=== PATIENT | female | born 1945 | race African-American/Black ===

== ENCOUNTER 2019-12-31 05:39 | Inpatient (IN) | payer MEDICARE, MEDICAID ==
[~2019-12-31] VITALS: Ht 172.7 cm; Wt 53.1 kg
[~2019-12-31 05:39] MED LIST: ALBU18HF2 INH; AMI2 PO; ASPI-1497 PO; ATOR10TA69 PO; BUSP5TAB3 PO; CARV3.1242 PO; CYCL10TA7 PO; DOCU-150 PO; DOCU-272 PO; FURO20TA4 PO; HYDR-4001 PO; IPRA4AER INH; LIDO35.44 TOP; LISI10TA5 PO; MELO-106 PO; NITR0.4T SL; PANT40TA4 PO; SPIR25TA6 PO; TIOT18CA3 IH; TIOT18CA3 INH; TRAM50TA3 PO; ZOLP5TAB8 PO
[2019-12-31 06:59] LABS: BASOPHILS % 0.5 % (0.0-2.0); EOSINOPHILS % 0.5 % (0.0-5.0); HEMATOCRIT. 39.3 % (36.0-48.0); HEMOGLOBIN. 13.7 g/dL (12.0-16.0); MEAN CORPUSCULAR HEMOGLOBIN 35.9 pg (28.0-32.0); MEAN CORPUSCULAR VOLUME 103.2 fL (81.0-99.0); MEAN PLATELET VOLUME 8.9 fl (7.4-10.4); MONOCYTES % 12.2 % (2.0-8.0); NEUTROPHILS % 73.8 % (40.0-76.0); PLATELET 155 x1000/uL (130-400); RED BLOOD CELL COUNT 3.81 mill/uL (4.2-5.4); RED CELL DISTRIBUTION WIDTH 12.6 % (11.6-14.6)
[2019-12-31 07:04] LABS: CLARITY URINE CLEAR (CLEAR); COLOR URINE YELLOW (YELLOW); KETONES URINE NEGATIVE (NEGATIVE); LEUKOCYTE ESTERASE URINE NEGATIVE (NEGATIVE); NITRITE URINE NEGATIVE (NEGATIVE); OCCULT BLOOD URINE NEGATIVE (NEGATIVE); PH URINE 6.5 (4.5-8.0); PROTEIN URINE NEGATIVE (NEGATIVE); SPECIFIC GRAVITY URINE 1.008 (1.005-1.030); UROBILINOGEN URINE 0.2 E.U./dL (0.2-1.0)
[2019-12-31 07:06] LABS: CHLORIDE 104 mEq/L (98-107)
[2019-12-31 07:10] LABS: ETHANOL BLOOD < 10 mg/dL
[2019-12-31 07:21] LABS: *AMPHETAMINES SCREEN URINE NEGATIVE (NEGATIVE); *BARBITURATES SCREEN URINE NEGATIVE (NEGATIVE); *BENZODIAZEPINES SCREEN URINE NEGATIVE (NEGATIVE)
[2019-12-31 07:22] LABS: *COCAINE SCREEN URINE PRESUMTIVE POSITIVE (NEGATIVE); CANNABINOID URINE SCREEN NEGATIVE (NEGATIVE); METHADONE URINE SCREEN NEGATIVE (NEGATIVE); OPIATES URINE SCREEN NEGATIVE (NEGATIVE); PHENCYCLIDINE URINE SCREEN NEGATIVE (NEGATIVE)
[2019-12-31] MEDS ORDERED: KETOROLAC 30MG/ML VIAL IV ONE (11:30)
[2019-12-31 20:00] VITALS: BP 111/68
[2019-12-31 21:48] VITALS: BP 111/68
[2019-12-31] MEDS ORDERED: ONDANSETRON HCL 4MG/2ML INJ IV PRN (22:30)
[2019-12-31] MEDS: HYDROCODONE/ACETAMINOPHEN 5/325MG TABLET PO PRN (23:00)
[2019-12-31] MEDS: SODIUM CHLORIDE 0.9% 1,000 ML IV SCH (23:36)
[2020-01-01] VITALS: BP 111/63
[2020-01-01 04:00] VITALS: BP 122/67
[2020-01-01 08:00] VITALS: BP 124/55
[2020-01-01] MEDS: ENOXAPARIN 40MG/0.4ML SYR SUBCUT SCH (08:01)
[2020-01-01 08:14] LABS: HEMATOCRIT. 36.9 % (36.0-48.0); HEMOGLOBIN. 12.6 g/dL (12.0-16.0); MEAN CORPUSCULAR HEMOGLOBIN 35.9 pg (28.0-32.0); MEAN CORPUSCULAR VOLUME 104.9 fL (81.0-99.0); MEAN PLATELET VOLUME 9.7 fl (7.4-10.4); PLATELET 139 x1000/uL (130-400); RED BLOOD CELL COUNT 3.52 mill/uL (4.2-5.4); RED CELL DISTRIBUTION WIDTH 12.4 % (11.6-14.6)
[2020-01-01] MEDS: SODIUM CHLORIDE 0.9% 1,000 ML IV SCH (10:58)
[2020-01-01] MEDS ORDERED: PNEUMOCOCCAL 23-VAL P-SAC VAC 0.5 ML IM ONE (11:00)
[2020-01-01 12:00] VITALS: BP 120/54
[2020-01-01] MEDS: ASPIRIN 81MG TABLET PO SCH (15:38)
[2020-01-01 15:57] VITALS: BP 103/61
[2020-01-01] MEDS: HYDROCODONE/ACETAMINOPHEN 5/325MG TABLET PO PRN ×2 (18:26→22:35)
[2020-01-01 20:00] VITALS: BP 109/71
[2020-01-01 23:26] LABS: PLATELET ESTIMATE NORMAL
[2020-01-01 23:56] LABS: T4 FREE 0.93 ng/dL (0.76-1.46)
[2020-01-02 00:06] LABS: FOLIC ACID (FOLATE) SERUM 16.4 ng/mL (>5.38)
[2020-01-02] MEDS: SODIUM CHLORIDE 0.9% 1,000 ML IV SCH (01:43)
[2020-01-02 04:00] VITALS: BP 116/69
[2020-01-02 06:30] LABS: HEMATOCRIT. 34.8 % (36.0-48.0); HEMOGLOBIN. 11.9 g/dL (12.0-16.0); MEAN CORPUSCULAR VOLUME 105.6 fL (81.0-99.0); MEAN PLATELET VOLUME 9.4 fl (7.4-10.4); PLATELET 121 x1000/uL (130-400); RED BLOOD CELL COUNT 3.29 mill/uL (4.2-5.4); RED CELL DISTRIBUTION WIDTH 12.7 % (11.6-14.6)
[2020-01-02 08:00] VITALS: BP 122/70
[2020-01-02] MEDS: ASPIRIN 81MG TABLET PO SCH (08:59)
[2020-01-02] MEDS ORDERED: FUROSEMIDE 40MG TABLET PO SCH (09:00)
[2020-01-02] MEDS: ENOXAPARIN 40MG/0.4ML SYR SUBCUT SCH (09:00)
[2020-01-02] MEDS: HYDROCODONE/ACETAMINOPHEN 5/325MG TABLET PO PRN (09:00)
[2020-01-02] MEDS ORDERED: LOSARTAN POTASSIUM 25 MG TABLET PO SCH (09:00)
[2020-01-02 12:00] VITALS: BP 120/72
[2020-01-02] MEDS ORDERED: AMIODARONE HCL 200 MG TABLET PO SCH (14:00)
[2020-01-02 14:10] LABS: PLATELET ESTIMATE DECREASED
[2020-01-02 14:56] VITALS: BP 120/72
[2020-01-02] MEDS ORDERED: CARVEDILOL 3.125 MG TABLET PO SCH (21:00)
== END 2020-01-02 17:22 | disposition home or self-care (01) | DRG 917 ==
LOC: ER 05:39 → 5WST 11:10 → ENRESERV 18:55
PROVIDERS: ADMIT Internal Medicine; ATTEND Internal Medicine
DX: T40.5X1A Poisoning by cocaine, accidental (unintentional), initial encounter (principal); G92 Toxic encephalopathy; I47.1 Supraventricular tachycardia; I50.22 Chronic systolic (congestive) heart failure; I42.9 Cardiomyopathy, unspecified; I11.0 Hypertensive heart disease with heart failure; J44.9 Chronic obstructive pulmonary disease, unspecified; F14.10 Cocaine abuse, uncomplicated; E78.00 Pure hypercholesterolemia, unspecified; Z88.0 Allergy status to penicillin; Z79.899 Other long term (current) drug therapy; Z86.73 Personal history of transient ischemic attack (TIA), and cerebral infarction without residual deficits; F19.10 Other psychoactive substance abuse, uncomplicated
CPT/HCPCS: 36415; 70551; 71045; 80048; 80053; 80061; 80305; 80320; 81003; 82140; 82607; 82746; 83036; 84439; 84443; 84481; 85025; 90732; 93005; 97116; 97162; 99285; J1650; J1885; J2405; J7030; G0480

== ENCOUNTER 2020-12-07 08:23 | Inpatient (IN) | payer MEDICARE, MEDICAID ==
[~2020-12-07] VITALS: Ht 172.7 cm; Wt 72.8 kg
[~2020-12-07 08:23] MED LIST changes: +LISI10TA26 PO; -LISI10TA5 PO; -PANT40TA4 PO; +PANT40TA51 PO
[2020-12-07] MEDS ORDERED: MORPHINE SULFATE 4 MG/ML CPJ (NOT FOR IM USE) IV STA (09:09)
[2020-12-07 09:26] LABS: HEMATOCRIT. 37.6 % (36.0-48.0); HEMOGLOBIN. 12.7 g/dL (12.0-16.0); MEAN CORPUSCULAR HEMOGLOBIN 34.5 pg (28.0-32.0); MEAN CORPUSCULAR VOLUME 102.2 fL (81.0-99.0); MEAN PLATELET VOLUME 8.4 fl (7.4-10.4); PLATELET 172 x1000/uL (130-400); RED BLOOD CELL COUNT 3.68 mill/uL (4.2-5.4); RED CELL DISTRIBUTION WIDTH 14.1 % (11.6-14.6)
[2020-12-07 09:33] LABS: CHLORIDE 111 mEq/L (98-107)
[2020-12-07 09:34] LABS: INR 1.2; PROTHROMBIN TIME 12.9 sec (9.6-11.0)
[2020-12-07] MEDS ORDERED: KETOROLAC 30MG/ML VIAL IV ONE (09:45)
[2020-12-07 09:55] LABS: CLARITY URINE TURBID (CLEAR); COLOR URINE DARK YELLOW (YELLOW); KETONES URINE TRACE (NEGATIVE); LEUKOCYTE ESTERASE URINE 3+ (NEGATIVE); NITRITE URINE NEGATIVE (NEGATIVE); OCCULT BLOOD URINE 3+ (NEGATIVE); PH URINE 5.5 (4.5-8.0); PROTEIN URINE 2+ (NEGATIVE); SPECIFIC GRAVITY URINE 1.018 (1.005-1.030)
[2020-12-07 10:27] LABS: PLATELET ESTIMATE NORMAL
[2020-12-07] MEDS ORDERED: LEVOFLOXACIN 750MG PREMIX 150 ML IV ONE (11:00)
[2020-12-07] MEDS: AZTREONAM 2 GM in DEXT 5% WATER 100 ML IV SCH (15:18)
[2020-12-07] MEDS ORDERED: DOCUSATE SODIUM 100MG CAPSULE PO PRN (22:45)
[2020-12-07] MEDS ORDERED: ACETAMINOPHEN 325MG TABLET PO PRN (22:45)
[2020-12-07] MEDS ORDERED: ONDANSETRON HCL 4MG/2ML INJ IV PRN (22:45)
[2020-12-07] MEDS: CARVEDILOL 3.125 MG TABLET PO SCH (23:00)
[2020-12-07] MEDS ORDERED: TRAMADOL 50MG TABLET PO PRN (23:00)
[2020-12-07] MEDS ORDERED: HYDROCODONE/ACETAMINOPHEN 5/325MG TABLET PO PRN (23:00)
[2020-12-07] MEDS ORDERED: ENOXAPARIN 40MG/0.4ML SYR SUBCUT SCH (23:00)
[2020-12-07 23:19] VITALS: BP 102/69
[2020-12-07] MEDS: ATORVASTATIN CALCIUM 10MG TABLET PO SCH (23:47)
[2020-12-08] MEDS: SODIUM CHLORIDE 0.9% 1,000 ML IV SCH ×3 (02:20→17:07)
[2020-12-08] MEDS: AZTREONAM 2 GM in DEXT 5% WATER 100 ML IV SCH ×2 (02:21→14:14)
[2020-12-08 04:00] VITALS: BP 125/73
[2020-12-08] MEDS: PANTOPRAZOLE 40MG DR TABLET PO SCH (06:37)
[2020-12-08 06:57] LABS: BASOPHILS % 0.3 % (0.0-2.0); EOSINOPHILS % 0.1 % (0.0-5.0); HEMATOCRIT. 40.8 % (36.0-48.0); HEMOGLOBIN. 13.7 g/dL (12.0-16.0); LYMPHOCYTES % 8.9 % (20.0-50.0); MEAN CORPUSCULAR HEMOGLOBIN 35.2 pg (28.0-32.0); MEAN CORPUSCULAR VOLUME 104.6 fL (81.0-99.0); MEAN PLATELET VOLUME 8.4 fl (7.4-10.4); MONOCYTES % 11.7 % (2.0-8.0); PLATELET 174 x1000/uL (130-400); RED CELL DISTRIBUTION WIDTH 14.9 % (11.6-14.6)
[2020-12-08 08:00] VITALS: BP 106/73
[2020-12-08] MEDS: AMIODARONE HCL 200 MG TABLET PO SCH (09:00)
[2020-12-08] MEDS ORDERED: CYCLOBENZAPRINE 10MG TABLET PO PRN (09:00)
[2020-12-08] MEDS: CARVEDILOL 3.125 MG TABLET PO SCH ×2 (09:00→20:54)
[2020-12-08] MEDS: FUROSEMIDE 20MG TABLET PO SCH (09:00)
[2020-12-08] MEDS: LISINOPRIL 10MG TABLET PO SCH (09:00)
[2020-12-08] MEDS: SPIRONOLACTONE 25MG TABLET PO SCH (09:00)
[2020-12-08] MEDS ORDERED: ALBUTEROL 6.7GM HFA INHALER INH PRN (09:00)
[2020-12-08] MEDS: BUSPIRONE HCL 5MG TABLET PO SCH ×2 (09:48→17:06)
[2020-12-08] MEDS: ASPIRIN 81MG EC TABLET PO SCH (09:48)
[2020-12-08 12:00] VITALS: BP 111/67
[2020-12-08] MEDS ORDERED: SULF1TAB48 MT (14:01)
[2020-12-08 16:00] VITALS: BP 122/79
[2020-12-08 17:11] VITALS: BP 122/79
[2020-12-08 20:00] VITALS: BP 111/76
[2020-12-08] MEDS: ATORVASTATIN CALCIUM 10MG TABLET PO SCH (20:54)
[2020-12-08] MEDS ORDERED: ZOLPIDEM TARTRATE 5MG TABLET PO PRN (21:00)
[2020-12-08] MEDS ORDERED: ENOXAPARIN 30MG/0.3ML SYR SUBCUT SCH (21:00)
[2020-12-08] MEDS ORDERED: LINEZOLID 600 MG PREMIX 300 ML IV SCH (22:00)
[2020-12-09] VITALS: BP 114/63
[2020-12-09 04:00] VITALS: BP 112/61
[2020-12-09] MEDS: SODIUM CHLORIDE 0.9% 1,000 ML IV SCH (04:49)
[2020-12-09] MEDS: PANTOPRAZOLE 40MG DR TABLET PO SCH ×2 (06:45→09:34)
[2020-12-09 08:00] VITALS: BP 110/70
[2020-12-09] MEDS ORDERED: LINEZOLID 600MG TABLET PO SCH (09:00)
[2020-12-09] MEDS: LISINOPRIL 10MG TABLET PO SCH (09:33)
[2020-12-09] MEDS: FUROSEMIDE 20MG TABLET PO SCH (09:34)
[2020-12-09] MEDS: AMIODARONE HCL 200 MG TABLET PO SCH (09:34)
[2020-12-09] MEDS: BUSPIRONE HCL 5MG TABLET PO SCH (09:34)
[2020-12-09] MEDS: ASPIRIN 81MG EC TABLET PO SCH (09:35)
[2020-12-09] MEDS: SPIRONOLACTONE 25MG TABLET PO SCH (09:35)
[2020-12-09] MEDS: CARVEDILOL 3.125 MG TABLET PO SCH (09:46)
== END 2020-12-09 12:30 | disposition home or self-care (01) | DRG 689 ==
LOC: ER 08:50 → MICUSO 13:10 → EDBEDREQTM 13:14 → EDBEDREQ 13:14 → EDBEDREQSVC 13:14 → 6EST 19:13
PROVIDERS: ADMIT Internal Medicine; ATTEND Internal Medicine
DX: N10 Acute pyelonephritis (principal); I50.21 Acute systolic (congestive) heart failure; I42.9 Cardiomyopathy, unspecified; R18.8 Other ascites; E78.5 Hyperlipidemia, unspecified; I48.0 Paroxysmal atrial fibrillation; I11.0 Hypertensive heart disease with heart failure; J45.909 Unspecified asthma, uncomplicated; D64.9 Anemia, unspecified; I25.10 Atherosclerotic heart disease of native coronary artery without angina pectoris; J44.9 Chronic obstructive pulmonary disease, unspecified; Z95.1 Presence of aortocoronary bypass graft; Z88.0 Allergy status to penicillin; Z79.899 Other long term (current) drug therapy; Z79.82 Long term (current) use of aspirin
CPT/HCPCS: 36415; 74176; 80048; 80053; 81003; 85025; 87077; 87186; 93005; 93970; 99285; J1650; J1885; J1956; J2270; J3490; J7030; J7042; J7060

== ENCOUNTER 2020-12-19 11:18 | Emergency (ER) | payer MEDICARE, MEDICAID ==
[~2020-12-19] VITALS: Ht 177.8 cm; Wt 88.0 kg
[~2020-12-19 11:18] MED LIST changes: +DOCU-268 PO; -DOCU-272 PO; +SULF1TAB48 MT
[2020-12-19] MEDS ORDERED: HYDROCODONE/ACETAMINOPHEN 5/325MG TABLET PO ONE (12:15)
[2020-12-19] MEDS ORDERED: ONDANSETRON HCL 4MG/2ML INJ IV ONE (12:30)
[2020-12-19] MEDS ORDERED: MORPHINE SULFATE 4 MG/ML CPJ (NOT FOR IM USE) IV ONE (12:30)
[2020-12-19 12:31] LABS: BASOPHILS % 0.7 % (0.0-2.0); EOSINOPHILS % 0.2 % (0.0-5.0); HEMOGLOBIN. 12.8 g/dL (12.0-16.0); LYMPHOCYTES % 20.8 % (20.0-50.0); MEAN CORPUSCULAR HEMOGLOBIN 34.3 pg (28.0-32.0); MEAN PLATELET VOLUME 8.4 fl (7.4-10.4); MONOCYTES % 9.8 % (2.0-8.0); NEUTROPHILS % 68.5 % (40.0-76.0); PLATELET 285 x1000/uL (130-400); RED BLOOD CELL COUNT 3.72 mill/uL (4.2-5.4); RED CELL DISTRIBUTION WIDTH 15.2 % (11.6-14.6)
[2020-12-19 12:37] LABS: CHLORIDE 110 mEq/L (98-107)
[2020-12-19] MEDS ORDERED: SODIUM CHLORIDE 0.9% 500 ML IV ONE (13:45)
[2020-12-19 14:39] LABS: INR 1.3; PROTHROMBIN TIME 13.3 sec (9.6-11.0)
[2020-12-19 16:55] LABS: CLARITY URINE CLEAR (CLEAR); COLOR URINE DARK YELLOW (YELLOW); KETONES URINE TRACE (NEGATIVE); LEUKOCYTE ESTERASE URINE TRACE (NEGATIVE); NITRITE URINE NEGATIVE (NEGATIVE); OCCULT BLOOD URINE NEGATIVE (NEGATIVE); PH URINE 5.5 (4.5-8.0); PROTEIN URINE 1+ (NEGATIVE); SPECIFIC GRAVITY URINE 1.023 (1.005-1.030)
[2020-12-19 19:00] VITALS: BP 136/80
== END 2020-12-19 19:30 | disposition home or self-care (01) ==
LOC: ER 11:34
DX: R10.32 Left lower quadrant pain (principal); J44.9 Chronic obstructive pulmonary disease, unspecified; I48.0 Paroxysmal atrial fibrillation; J45.909 Unspecified asthma, uncomplicated; I11.0 Hypertensive heart disease with heart failure; I50.9 Heart failure, unspecified; E78.00 Pure hypercholesterolemia, unspecified; I42.9 Cardiomyopathy, unspecified; Z95.1 Presence of aortocoronary bypass graft; Z79.82 Long term (current) use of aspirin; Z98.890 Other specified postprocedural states; Z79.01 Long term (current) use of anticoagulants; Z88.0 Allergy status to penicillin
CPT/HCPCS: 36415; 74176; 80053; 81003; 83690; 85025; 85610; 93005; 96361; 96374; 96375; 99285; J2270; J2405; J7040

== ENCOUNTER 2021-06-23 13:59 | Emergency (ER) | payer MEDICARE, MEDICAID ==
[~2021-06-23] VITALS: Ht 170.2 cm; Wt 55.0 kg
[~2021-06-23 13:59] MED LIST changes: +PRED10TA23 PO; -SULF1TAB48 MT
[2021-06-23] MEDS ORDERED: HYDROCODONE/APAP 7.5/325MG 1 TAB TABLET PO ONE (15:30)
[2021-06-23] MEDS ORDERED: KETOROLAC 60MG/2ML VIAL IM ONE (15:30)
[2021-06-23] MEDS ORDERED: METHOCARBAMOL 750MG TABLET PO SCH (15:30)
[2021-06-23] MEDS ORDERED: LIDOCAINE 5% PATCH TOP SCH (15:30)
[2021-06-23] MEDS ORDERED: LIDO1ADH23 TP (17:23)
[2021-06-23] MEDS ORDERED: METH-653 MT (17:23)
[2021-06-23] MEDS ORDERED: IBUP-2028 MT (17:23)
[2021-06-23 18:17] LABS: BASOPHILS % 0.9 % (0.0-2.0); EOSINOPHILS % 1.1 % (0.0-5.0); HEMOGLOBIN. 11.5 g/dL (12.0-16.0); LYMPHOCYTES % 15.4 % (20.0-50.0); MEAN CORPUSCULAR HEMOGLOBIN 32.9 pg (28.0-32.0); MEAN CORPUSCULAR VOLUME 99.7 fL (81.0-99.0); MEAN PLATELET VOLUME 7.9 fl (7.4-10.4); MONOCYTES % 13.6 % (2.0-8.0); PLATELET 225 x1000/uL (130-400); RED BLOOD CELL COUNT 3.51 mill/uL (4.2-5.4); RED CELL DISTRIBUTION WIDTH 17.9 % (11.6-14.6)
[2021-06-23 18:22] LABS: CHLORIDE 108 mEq/L (98-107)
[2021-06-23 21:57] LABS: CLARITY URINE CLEAR (CLEAR); COLOR URINE DARK YELLOW (YELLOW); KETONES URINE TRACE (NEGATIVE); LEUKOCYTE ESTERASE URINE TRACE (NEGATIVE); NITRITE URINE NEGATIVE (NEGATIVE); OCCULT BLOOD URINE NEGATIVE (NEGATIVE); PH URINE 5.5 (4.5-8.0); PROTEIN URINE 1+ (NEGATIVE); SPECIFIC GRAVITY URINE 1.024 (1.005-1.030)
[2021-06-23] MEDS ORDERED: CEFP200T13 MT (22:44)
[2021-06-23] MEDS ORDERED: CEFTRIAXONE SODIUM 1 G/VIAL IM ONE (22:45)
[2021-06-23 23:51] VITALS: BP 128/68
== END 2021-06-23 23:52 | disposition home or self-care (01) ==
LOC: ER 14:10
DX: M54.9 Dorsalgia, unspecified (principal); G89.29 Other chronic pain; M48.00 Spinal stenosis, site unspecified; K76.0 Fatty (change of) liver, not elsewhere classified; R18.8 Other ascites; N39.0 Urinary tract infection, site not specified; I11.0 Hypertensive heart disease with heart failure; I50.9 Heart failure, unspecified; Z88.0 Allergy status to penicillin; Z79.82 Long term (current) use of aspirin; Z20.822 Contact with and (suspected) exposure to COVID-19; Z98.890 Other specified postprocedural states; J44.9 Chronic obstructive pulmonary disease, unspecified
CPT/HCPCS: 36415; 72050; 72070; 76700; 80053; 81003; 83690; 85025; 87426; 96372; 99285; J0696; J1885

== ENCOUNTER 2021-07-15 18:31 | Inpatient (IN) | payer MEDICARE, MEDICAID ==
[~2021-07-15] VITALS: Ht 165.1 cm; Wt 59.9 kg
[~2021-07-15 18:31] MED LIST changes: +CEFP200T13 MT; +IBUP-2028 MT; +LIDO1ADH23 TP; +METH-653 MT
[2021-07-15] MEDS ORDERED: MORPHINE SULFATE 4 MG/ML CPJ (NOT FOR IM USE) IV STA (19:17)
[2021-07-15 19:56] LABS: BASOPHILS % 1.6 % (0.0-2.0); EOSINOPHILS % 1.4 % (0.0-5.0); HEMATOCRIT. 39.1 % (36.0-48.0); HEMOGLOBIN. 12.2 g/dL (12.0-16.0); LYMPHOCYTES % 21.8 % (20.0-50.0); MEAN CORPUSCULAR HEMOGLOBIN 31.7 pg (28.0-32.0); MEAN CORPUSCULAR VOLUME 101.3 fL (81.0-99.0); MEAN PLATELET VOLUME 7.8 fl (7.4-10.4); MONOCYTES % 12.7 % (2.0-8.0); NEUTROPHILS % 62.5 % (40.0-76.0); PLATELET 205 x1000/uL (130-400); RED BLOOD CELL COUNT 3.86 mill/uL (4.2-5.4); RED CELL DISTRIBUTION WIDTH 19.5 % (11.6-14.6)
[2021-07-15 20:05] LABS: CHLORIDE 110 mEq/L (98-107)
[2021-07-15] MEDS ORDERED: FUROSEMIDE 40MG/4ML VIAL IVP ONE (23:00)
[2021-07-16] MEDS ORDERED: CEFTRIAXONE 1 G PREMIX 50 ML IV SCH (01:00)
[2021-07-16 03:03] LABS: CLARITY URINE CLEAR (CLEAR); COLOR URINE YELLOW (YELLOW); KETONES URINE NEGATIVE (NEGATIVE); LEUKOCYTE ESTERASE URINE NEGATIVE (NEGATIVE); NITRITE URINE NEGATIVE (NEGATIVE); OCCULT BLOOD URINE NEGATIVE (NEGATIVE); PH URINE 5.5 (4.5-8.0); PROTEIN URINE NEGATIVE (NEGATIVE); SPECIFIC GRAVITY URINE 1.009 (1.005-1.030); UROBILINOGEN URINE 0.2 E.U./dL (0.2-1.0)
[2021-07-16 12:00] VITALS: BP 140/86
[2021-07-16 13:01] VITALS: BP 140/86
[2021-07-16 16:00] VITALS: BP 121/66
[2021-07-16] MEDS ORDERED: MORPHINE SULFATE 2 MG/ML CPJ (NOT FOR IM USE) IV PRN (16:00)
[2021-07-16] MEDS: SODIUM CHLORIDE 0.9% 1,000 ML IV SCH (19:22)
[2021-07-16 20:00] VITALS: BP 110/63
[2021-07-16] MEDS: MORPHINE SULFATE 2 MG/ML CPJ (NOT FOR IM USE) IV PRN (23:44)
[2021-07-17] VITALS: BP 120/66
[2021-07-17 04:00] VITALS: BP 118/73
[2021-07-17] MEDS: SODIUM CHLORIDE 0.9% 1,000 ML IV SCH ×2 (05:35→18:42)
[2021-07-17 08:00] VITALS: BP 119/59
[2021-07-17] MEDS ORDERED: ASPIRIN 81MG EC TABLET PO SCH (09:00)
[2021-07-17] MEDS: PANTOPRAZOLE 40MG DR TABLET PO SCH (11:33)
[2021-07-17] MEDS: CARVEDILOL 3.125 MG TABLET PO SCH ×2 (11:34→21:00)
[2021-07-17] MEDS: SPIRONOLACTONE 25MG TABLET PO SCH (11:34)
[2021-07-17] MEDS: BUSPIRONE HCL 5MG TABLET PO SCH ×2 (11:35→19:26)
[2021-07-17] MEDS: LISINOPRIL 10MG TABLET PO SCH (11:36)
[2021-07-17 12:00] VITALS: BP 115/58
[2021-07-17] MEDS: CYCLOBENZAPRINE 10MG TABLET PO SCH ×2 (12:27→19:26)
[2021-07-17] MEDS: AMIODARONE HCL 200 MG TABLET PO SCH (12:27)
[2021-07-17 16:00] VITALS: BP 121/62
[2021-07-17 20:00] VITALS: BP 105/62
[2021-07-17] MEDS: ATORVASTATIN CALCIUM 10MG TABLET PO SCH (21:57)
[2021-07-18] VITALS: BP 133/71
[2021-07-18] MEDS: MORPHINE SULFATE 2 MG/ML CPJ (NOT FOR IM USE) IV PRN (00:17)
[2021-07-18 04:00] VITALS: BP 126/79
[2021-07-18] MEDS: PANTOPRAZOLE 40MG DR TABLET PO SCH (05:35)
[2021-07-18 08:00] VITALS: BP 126/72
[2021-07-18 08:22] LABS: INR 1.2; PARTIAL THROMBOPLASTIN TIME 28.4 sec (23.4-31.0); PROTHROMBIN TIME 13.1 sec (9.6-11.0)
[2021-07-18] MEDS: BUSPIRONE HCL 5MG TABLET PO SCH ×2 (08:52→17:32)
[2021-07-18] MEDS: SPIRONOLACTONE 25MG TABLET PO SCH (08:52)
[2021-07-18] MEDS: LISINOPRIL 10MG TABLET PO SCH (08:53)
[2021-07-18] MEDS: AMIODARONE HCL 200 MG TABLET PO SCH (08:53)
[2021-07-18] MEDS: CARVEDILOL 3.125 MG TABLET PO SCH ×2 (08:54→21:00)
[2021-07-18] MEDS: SODIUM CHLORIDE 0.9% 1,000 ML IV SCH (10:24)
[2021-07-18] MEDS: CYCLOBENZAPRINE 10MG TABLET PO SCH ×2 (10:24→17:32)
[2021-07-18 12:00] VITALS: BP 116/68
[2021-07-18 16:15] VITALS: BP 105/70
[2021-07-18 20:00] VITALS: BP 139/76
[2021-07-18] MEDS: ATORVASTATIN CALCIUM 10MG TABLET PO SCH (21:00)
[2021-07-19] VITALS (7 sets, daily range): BP systolic 106–128; BP diastolic 58–79
[2021-07-19] MEDS: PANTOPRAZOLE 40MG DR TABLET PO SCH (06:24)
[2021-07-19] MEDS ORDERED: SODIUM BICARBONATE 4% (2.4MEQ) 5ML VIAL IV ONE (10:17)
[2021-07-19] MEDS: LISINOPRIL 10MG TABLET PO SCH (11:40)
[2021-07-19] MEDS: AMIODARONE HCL 200 MG TABLET PO SCH (11:40)
[2021-07-19] MEDS: SPIRONOLACTONE 25MG TABLET PO SCH (11:40)
[2021-07-19] MEDS: CARVEDILOL 3.125 MG TABLET PO SCH ×2 (11:41→20:37)
[2021-07-19] MEDS: BUSPIRONE HCL 5MG TABLET PO SCH ×2 (11:42→17:03)
[2021-07-19] MEDS: CYCLOBENZAPRINE 10MG TABLET PO SCH ×2 (12:48→17:03)
[2021-07-19] MEDS ORDERED: NALOXONE HCL 0.4MG/ML VIAL IV PRN (15:15)
[2021-07-19] MEDS: ATORVASTATIN CALCIUM 10MG TABLET PO SCH (20:36)
== END 2021-07-19 21:33 | disposition home or self-care (01) | DRG 432 ==
LOC: ER 18:31 → MICUSO 22:53 → 8WST 07-16 13:35
PROVIDERS: ADMIT Internal Medicine; ATTEND Internal Medicine
PROC: 0W9G3ZZ Drainage of Peritoneal Cavity, Percutaneous Approach (ICD-10-PCS; principal; 2021-07-19)
DX: K74.60 Unspecified cirrhosis of liver (principal); I50.23 Acute on chronic systolic (congestive) heart failure; I13.0 Hypertensive heart and chronic kidney disease with heart failure and stage 1 through stage 4 chronic kidney disease, or unspecified chronic kidney disease; R18.8 Other ascites; R10.84 Generalized abdominal pain; I25.10 Atherosclerotic heart disease of native coronary artery without angina pectoris; M48.00 Spinal stenosis, site unspecified; F14.90 Cocaine use, unspecified, uncomplicated; Z20.822 Contact with and (suspected) exposure to COVID-19; F17.200 Nicotine dependence, unspecified, uncomplicated; J44.9 Chronic obstructive pulmonary disease, unspecified; N18.9 Chronic kidney disease, unspecified; D72.819 Decreased white blood cell count, unspecified; Z88.0 Allergy status to penicillin; Z71.3 Dietary counseling and surveillance; F19.11 Other psychoactive substance abuse, in remission; Z71.51 Drug abuse counseling and surveillance of drug abuser
CPT/HCPCS: 36415; 49083; 74176; 80053; 81003; 83880; 84145; 85025; 87426; 99285; J0696; J1940; J2270; J3490; J7030